=== PATIENT | male | born 1985 | race Caucasian/White ===

== ENCOUNTER 2017-01-21 14:09 | Emergency (ER) | payer MEDICAID, MEDICARE ==
[~2017-01-21] VITALS: Ht 177.8 cm; Wt 102.1 kg
--- NOTE | 2017-01-21 14:24 | PHYS DOC ---
Past Medical History Past Medical History: Asthma, Hypertension Additional Past Medical Histor: psychiatric Past Surgical History: Other Additional Past Surgical Histo: groin cyst removal Alcohol Use: Occasionally Drug Use: None Adult General Chief Complaint Chief Complaint: PUNCTURE WOUND [facility] HPI Patient is a 31 year old male presents to the emergency department stating also that he was walking in the dark when he stepped on 3 nails and was then a 4 x 4. He states that he pulled all 3 nails out of his foot. He states today his foot is been swollen and very tender. He states he's taken 2 ibuprofen for the pain. He denies any drainage or discharge coming from the site he is unsure when his last tetanus immunization occurred. Patient is ambulatory into the department. Review of Systems Review of Systems Constitutional: Denies fever or chills [] Eyes: Denies change in visual acuity, redness, or eye pain [] HENT: Denies nasal congestion or sore throat [] Respiratory: Denies cough or shortness of breath [] Cardiovascular: No additional information not addressed in HPI [] GI: Denies abdominal pain, nausea, vomiting, bloody stools or diarrhea [] : Denies dysuria or hematuria [] Musculoskeletal: Denies back pain or joint pain [] Integument: Denies rash or skin lesions. C/o puncture wound to the right foot Neurologic: Denies headache, focal weakness or sensory changes [] Endocrine: Denies polyuria or polydipsia [] Current Medications Current Medications Current Medications Medications (Trade) Dose Ordered Sig/Johnson Start Time Stop Time Status Last Admin Dose Admin Acetaminophen (Tylenol) 1,000 mg 1X ONCE 01/21/17 14:30 01/21/17 14:31 DC 01/21/17 14:59 1,000 MG Allergies Allergies Allergies Coded Allergies Type Severity Reaction Last Updated Verified cefaclor Allergy Intermediate 05/28/14 Yes erythromycin base Allergy Intermediate 05/28/14 Yes pertussis vaccine,adsorbed Allergy Intermediate 05/28/14 Yes Physical Exam Physical Exam Constitutional: Well developed, well nourished, no acute distress, non-toxic appearance. [] HENT: Normocephalic, atraumatic, bilateral external ears normal, oropharynx moist, no oral exudates, nose normal. [] Eyes: PERRLA, EOMI, conjunctiva normal, no discharge. [] Neck: Normal range of motion, no tenderness, supple, no stridor. [] Cardiovascular:Heart rate regular rhythm Lungs & Thorax: No respiratory distress Skin: Warm, dry, no erythema, no rash. Patient with wounds noted in the right foot, at the proximal metatarsal areas. Areas appear to be very tender and slightly red no drainage coming from the sites. Back: No tenderness Extremities: No tenderness, no cyanosis, no clubbing, ROM intact, no edema. Peripheral pulses 2+ posterior tibial pulse 2+. Cap refill brisk less than 2 seconds. Patient is able to move all toes with no difficulty. Neurologic: Alert and oriented X 3, normal motor function, normal sensory function, no focal deficits noted. [] Psychologic: Affect normal, judgement normal, mood normal. [] Current Patient Data Vital Signs Vital Signs Date Time Temp Pulse Resp B/P (MAP) Pulse Ox O2 Delivery O2 Flow Rate FiO2 01/21/17 14:29 98.7 113 16 95 Room Air 98.7 EKG EKG [] Radiology/Procedures Radiology/Procedures [][facility] [address] [place] [address] IMAGING REPORT Signed PATIENT: FANTASMA ALCANTAR ACCOUNT: [id number] : 1985 LOCATION: ER AGE: 31 SEX: M EXAM STATUS: REG ER ORD. PHYSICIAN: SOPHIA QUIROS APRN REASON: stepped on nail last night PROCEDURE: FOOT RIGHT 3V Indication: Stepped on 2 nails last night on the ball of the right foot. Technique: 3 views of the right foot are submitted for review. No comparison is available. Findings: There is no fracture or dislocation. There is no radiopaque foreign body. Impression: Negative for radiopaque foreign body. DICTATED and SIGNED BY: RENZO YBARRA MD DATE: 01/21/17 1511 CC: SOPHIA QUIROS APRN; NO PCP ~ Course & Med Decision Making Course & Med Decision Making Pertinent Labs and Imaging studies reviewed. (See chart for details) [] Dragon Disclaimer Dragon Disclaimer This electronic medical record was generated, in whole or in part, using a voice recognition dictation system. Departure Departure Impression: Primary Impression: Puncture wound Disposition: HOME, SELF-CARE Condition: STABLE Referrals: NO PCP (PCP) Patient Instructions: Puncture Wound, [id number] Additional Instructions: Activity as tolerated. Tylenol or ibuprofen for pain and discomfort. Secure fitted warm Epsom salt soaks 4 times a day. Antibiotics as prescribed. Follow-up primary care physician in the next week. Return back to emergency prior signs symptoms of become worse. Scripts Ciprofloxacin Hcl (CIPRO) 500 Mg Tablet 1 TAB PO BID, #20 TAB Prov: SOPHIA QUIROS APRN 01/21/17 SOPHIA QUIROS APRN Jan 21, 2017 14:24
[2017-01-21 14:29] VITALS: BP 140/82
[2017-01-21] MEDS ORDERED: ACETAMINOPHEN 500 MG TABLET PO ONE (14:30)
--- NOTE | 2017-01-21 15:14 | RAD ---
Indication: Stepped on 2 nails last night on the ball of the right foot. Technique: 3 views of the right foot are submitted for review. No comparison is available. Findings: There is no fracture or dislocation. There is no radiopaque foreign body. Impression: Negative for radiopaque foreign body.
[2017-01-21] MEDS ORDERED: CIPR500T94 PO (15:20)
[2017-01-21] MEDS ORDERED: DIPHTH,PERTUSS(ACELL),TET TOX 0.5 ML DISP.SYRIN. VAX IM ONE (15:30)
[2017-01-21] MEDS ORDERED: TETANUS AND DIPHTHERIA TOX/PF 0.5 ML DISP.SYRIN. VAX IM ONE (16:00)
== END 2017-01-21 15:49 | disposition home or self-care (01) ==
LOC: ER 14:09
DX: S91.331A Puncture wound without foreign body, right foot, initial encounter (principal); I10 Essential (primary) hypertension; J45.909 Unspecified asthma, uncomplicated; Z88.1 Allergy status to other antibiotic agents; Z88.8 Allergy status to other drugs, medicaments and biological substances; Z88.7 Allergy status to serum and vaccine; W45.0XXA Nail entering through skin, initial encounter; Y93.89 Activity, other specified; Y99.8 Other external cause status; Y92.89 Other specified places as the place of occurrence of the external cause
CPT/HCPCS: 73630; 90471; 90714; 99284-25

== ENCOUNTER 2017-07-17 21:06 | Emergency (ER) | payer MEDICARE ==
[2017-07-17] MEDS ORDERED: methylPREDNISolone SOD SUCC PF 125 MG/2 ML VIAL. IV ×2 (21:30)
[2017-07-17] MEDS ORDERED: ACETAMINOPHEN 325 MG TABLET. PO ×2 (21:30)
[2017-07-17] MEDS: ONDANSETRON ODT 4 MG TAB.RAPDIS. PO ×2 (22:07)
[2017-07-17] MEDS: fentaNYL PF VIAL 100 MCG/2 ML VIAL IM ×2 (22:07)
[2017-07-17] MEDS: CYCLOBENZAPRINE 10 MG TABLET. PO ×2 (22:11)
[2017-07-17] MEDS: IBUPROFEN 600 MG TABLET. PO ×2 (22:11)
== END 2017-07-17 22:44 | disposition home or self-care (01) ==
LOC: ER 21:06
DX: S06.0X9A Concussion with loss of consciousness of unspecified duration, initial encounter (principal); S16.1XXA Strain of muscle, fascia and tendon at neck level, initial encounter; M54.5 Low back pain; F41.9 Anxiety disorder, unspecified; F32.9 Major depressive disorder, single episode, unspecified; F31.9 Bipolar disorder, unspecified; Z88.1 Allergy status to other antibiotic agents; Z88.7 Allergy status to serum and vaccine; W10.9XXA Fall (on) (from) unspecified stairs and steps, initial encounter; Y93.89 Activity, other specified; Y92.89 Other specified places as the place of occurrence of the external cause; Y99.8 Other external cause status
CPT/HCPCS: 70450; 72125; 96372; 99284-25; J3010; Q0162